=== PATIENT | male | born 1970 | race African-American/Black ===

== ENCOUNTER 2020-04-10 05:31 | Day surgery (SDC) | payer OTHER ==
[2020-04-05 09:30] LABS: HEMATOCRIT 41.5 % (37.9-51.0); HEMOGLOBIN 14.1 g/dL (13.5-17.0); MEAN CORPUSCULAR VOLUME 85 fl (80-97); PLATELET COUNT 282 10^3/uL (150-450); RED BLOOD COUNT 4.87 10^6/uL (4.35-5.55); RED CELL DISTRIBUTION WIDTH 14.1 % (11.5-14.0); WHITE BLOOD COUNT 4.5 10^3/uL (4.0-10.5)
[2020-04-05 09:33] LABS: APPEARANCE,URINE CLEAR; BILIRUBIN,URINE NEGATIVE (NEGATIVE); COLOR,URINE YELLOW; GLUCOSE, URINE NEGATIVE (NEGATIVE); KETONES,URINE NEGATIVE (NEGATIVE); LEUKOCYTE ESTERASE,URINE NEGATIVE (NEGATIVE); NITRITE,URINE NEGATIVE (NEGATIVE); PROTEIN,URINE NEGATIVE (NEGATIVE); URINE SPECIFIC GRAVITY 1.023; UROBILINOGEN,URINE NEGATIVE mg/dL (<2.0)
[2020-04-05 09:33] LABS: INTERNATIONAL RATION (INR) 1.01; PROTHROMBIN TIME 13.4 SEC (11.4-15.4)
[2020-04-05 09:34] LABS: PARTIAL THROMBOPLASTIN TIME 26.3 SEC (23.5-35.8)
[2020-04-05 09:59] LABS: ANION GAP 7 (5-19); BLOOD UREA NITROGEN 16 mg/dL (7-20); CALCIUM 9.7 mg/dL (8.4-10.2); CARBON DIOXIDE 28 mmol/L (22-30); CHLORIDE 104 mmol/L (98-107); GLUCOSE 123 mg/dL (75-110)
[~2020-04-10 05:31] MED LIST: CEFAZOLIN 2 GM/D5W RTU 2 GM/50 ML RTUPB IV PRN; DEXAMETHASONE SOD PHOSPHATE INJ 4 MG/1 ML VIAL ONE; GLYCOPYRROLATE 1 MG/5 ML VIAL ONE; LACTATED RINGERS 1000 ML IV PRN; LIDOCAINE 0.5% INJ-PF (5 MG/ML) 50 ML SDV SUBCUT PRN; NEOSTIGMINE METHYLSULFATE 10 MG/10 ML VIAL ONE; PHENYLEPHRINE HCL INJ/PF 10 MG/1 ML SDV ONE
[2020-04-10] MEDS ORDERED: CEFAZOLIN 2 GM/D5W RTU 2 GM/50 ML RTUPB IV ONE (05:34)
[2020-04-10] MEDS ORDERED: LIDOCAINE 2% INJ-PF (20 MG/ML) 10 ML AMPUL ONE (06:56)
[2020-04-10] MEDS ORDERED: FENTANYL CITRATE INJ/PF 100 MCG/2 ML AMPUL ONE (06:57)
[2020-04-10] MEDS ORDERED: ONDANSETRON HCL INJ/PF 4 MG/2 ML SDV ONE (06:57)
[2020-04-10] MEDS ORDERED: HYDROMORPHONE HCL INJ/PF 2 MG/ML AMPULE ONE (06:57)
[2020-04-10] MEDS ORDERED: MIDAZOLAM 2 MG/2 ML INJ ONE (06:57)
[2020-04-10] MEDS ORDERED: PROPOFOL INJ 200 MG/20 ML VIAL IV ONE (06:57)
[2020-04-10] MEDS ORDERED: DEXAMETHASONE SOD PHOSPHATE INJ 4 MG/1 ML VIAL ONE (06:57)
[2020-04-10] MEDS ORDERED: BUPIVACAINE HCL 0.25 % INJ/PF (2.5 MG/1 ML) 30 ML VIAL ONE (08:06)
[2020-04-10] MEDS ORDERED: PROMETHAZINE HCL INJ 25 MG/1 ML VIAL IV PRN ×2 (08:47)
[2020-04-10] MEDS ORDERED: OXYCODONE-ACETAMINOPHEN 5-325 MG TABLET PO PRN ×2 (08:47)
[2020-04-10] MEDS ORDERED: DIPHENHYDRAMINE HCL 50 MG/ML VIAL IV PRN (08:47)
[2020-04-10] MEDS ORDERED: FENTANYL CITRATE INJ/PF 100 MCG/2 ML AMPUL IV PRN ×3 (08:47)
[2020-04-10] MEDS ORDERED: MORPHINE SULFATE 10 MG/ML INJ IV PRN ×2 (08:47→13:17)
[2020-04-10] MEDS ORDERED: MEPERIDINE HCL/PF INJ 25 MG/1 ML DISP.SYRIN IV PRN (08:47)
[2020-04-10] MEDS ORDERED: CEFAZOLIN INJ 1 GM VIAL ONE (11:13)
[2020-04-10] MEDS ORDERED: ACETAMINOPHEN 325 MG TABLET PO PRN (13:13)
[2020-04-10] MEDS ORDERED: ONDANSETRON HCL INJ/PF 4 MG/2 ML SDV IV PRN (13:13)
[2020-04-10] MEDS ORDERED: KETOROLAC TROMETHAMINE INJ/PF 30 MG/1 ML SDV ONE (13:19)
--- NOTE | 2020-04-10 13:30 | Operative Report ---
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 Watertight anastomosis so no drain left. PROCEDURE: The patient was placed on the operating table in the supine position, identified by his name tag, social security number, and his planned procedure. He was then given general endotracheal anesthesia and then prepped and draped in usual fashion for robotic-assisted laparoscopic radical prostatectomy. He was then placed in the stirrups in the dorsal lithotomy position. A veress needle was passed into the abdomen and the drop test was positive. The abdomen was then insufflated to 15 mmHg pressure. Anesthesia had some equipment issue so pressure was dropped and after the issue was corrected, the case resumed. Da Fiona ports were then placed. Camera port was placed just above the umbilicus. 2 da Fiona ports were placed 8 cm from the midline at the upper portion of the umbilicus. A fourth port was then placed additional 8 cm lateral to the left hand port. An speech language pathology assistant port was then placed in the right lower abdomen 8 cm below the right hand port. A 5 mm port was then placed just cephalad and medial to the speech language pathology assistant port for irrigation and suction. The da Fiona robot was then docked to the patient and the table then maneuvered into the steep Trendelenburg position of about 25degrees. The 0 degree camera lens was placed in the third arm. Hot scissors in the fourth arm port and cobra in the first arm port and a [place] forceps in the second arm. The node dissection was begun by incising the peritoneum lateral to the medial umbilical ligament on the right side and carried down to the symphysis. The node bearing tissue overlying the external iliac artery and vein as well as the obturator fossa was dissected free and the lymphatic channels sealed with cautery. The obturator nerve was visualized. Bleeding points were fulgurated as they occurred. These nodes were then passed off the field. No active bleeding was noted. Attention was turned to the left side. A similar incision was made lateral to the left medial umbilical ligament and carried down to the symphysis. The left external iliac artery was identified and the node bearing tissue overlying the artery and vein as well as the obturator fossa was removed. Then attention was turned to dropping the bladder and as the medial umbilical ligaments, and were transected below the umbilicus and the retro-pubic space was entered sharply and with cautery. The fat overlying the prostate was removed. Endopelvic fascia was opened on both sides and carried down to the apex of the prostate. A #2-0 v-lock was then used as a DVC obstructing stitch. Attention was then turned to the bladder neck where the bladder neck was incised beginning in the midline and carrying lateral to drop the bladder from the base of prostate. The urethra was then identified and transected in the midline and the catheter was pulled out to be used for traction. The prostate and the bladder neck posteriorly was incised and the seminal vesicles were identified on both sides along with the ampulla of the vas. The ampulla vas were individually cauterized and transected and used for traction. The seminal vesicles were then dissected free and lifted superiorly exposing the denonvieller's fascia. This plane was developed to identify the pedicles on both sides of the prostate which were taken down with cautery. Dissection was carried all the way to the apex of the prostate on both sides. The dorsal venous complex was then transected and the urethra identified. The apex of the prostate was identified and the urethra was transected distal to the apex of the prostate. The rectourethralis musculature was then incised and the prostate was freed. The prostate was then placed in a bag and moved to the side of the field. No significant bleeding was appreciated this time. The anastomosis of the bladder neck and urethra was accomplished with 3-0 Vicryl suture in double-armed fashion. The anastomosis begun by placing the sutures in the midline of the bladder posteriorly and then passed them through the respective positions in the urethra. Once these were tightened up the results appeared to be a watertight closure. A new catheter was introduced into the urethra into the bladder and the bladder insufflated with 180 mL of water. There is no evidence of any leak at the urethrovesical anastomosis. The gutters were then suctioned be sure was no active bleeding. The suture on the bag was then passed out through the camera port. The robot was undocked and the ports were removed. Prudencio Christy was used to close the 12mm speech language pathology assistant port. Patient was then placed in the supine position. The midline port site was then incised to allow removal of the bag. The rectus fascia was closed with 0 Vicryl running sutures. [place] then placed in the skin and dressings were applied. Local was then administerd. Patient was then awakened and taken to recovery room in satisfactory condition. All counts were correct. Estimated blood loss approximately 50 mL.
[2020-04-10] MEDS ORDERED: DOCUSATE SODIUM 100 MG CAPSULE PO SCH (15:00)
[2020-04-10] MEDS: RINGERS SOLUTION,LACTATED 1,000 ML IV PRN (16:31)
[2020-04-10] MEDS: OXYCODONE HCL IR 5 MG TABLET PO PRN (19:55)
[2020-04-11] MEDS: OXYCODONE HCL IR 5 MG TABLET PO PRN ×2 (00:33→06:51)
[2020-04-11] MEDS: RINGERS SOLUTION,LACTATED 1,000 ML IV PRN (05:16)
--- NOTE | 2020-04-11 08:14 | PDOC PROGRESS REPORT ---
Subjective Progress Note for:: 04/11/20 Subjective:: Pt doing well this a.m. with NAEO. Has ambulated. Tolerating PO. No flatus yet. Pain has been tolerable and managed by medication Reason For Visit: PROSTATE CANCER Physical Exam Vital Signs: Temp Pulse Resp BP Pulse Ox 98.9 F 91 17 126/69 H 98 04/11/20 03:51 04/11/20 03:51 04/11/20 03:51 04/11/20 03:51 04/11/20 03:51 Intake & Output 04/10/20 04/11/20 04/12/20 06:59 06:59 06:59 Intake Total 0 5056 Output Total 3650 Balance 0 1406 Weight 99.79 kg 101.5 kg General appearance: PRESENT: no acute distress Eye exam: PRESENT: EOMI Mouth exam: PRESENT: moist Respiratory exam: PRESENT: symmetrical, unlabored Cardiovascular exam: PRESENT: RRR GI/Abdominal exam: PRESENT: soft, tenderness - appropriate, other - incisions covered with surgical glue C/D/I Extremities exam: PRESENT: other - sims catheter in place drianing clear slightly blood tinged but yellow urine Results Laboratory Results: 04/05/20 08:38 04/05/20 08:38 Assessment & Plan - Plan Summary Plan Summary: Pt is POD#1 Robotic RP PLND -doing well and will discharge today -encouraged ambulation -oral pain meds -reg diet - encouraged to eat what is tolerated and drink enough to stay hydrated -sims to remain in place on discharge
[2020-04-11 08:20] VITALS: BP 139/87
== END 2020-04-11 09:08 | disposition home or self-care (01) ==
LOC: OROUT 05:31 → 4S 15:18 → OROUT 04-11 09:08
PROVIDERS: ATTEND Urology
DX: C61 Malignant neoplasm of prostate (principal); Z03.818 Encounter for observation for suspected exposure to other biological agents ruled out
CPT/HCPCS: 86900; 86901; 36415 ×2; 87086; 86850; 85027; 85610; 85730; 87635; 80048; 81001; 88305 ×2; 55866; 38571; C1758; J2250; J0690 ×2; J1100; J3010; J1885; J2710; J1170; J2370; J2405; J7120 ×2; J2704; J3490 ×2; C9803; 865; 88309